=== PATIENT | male | born 1995 | race Two or more races ===

== ENCOUNTER 2016-09-11 10:05 | Emergency (ER) | payer MEDICAID ==
[~2016-09-11] VITALS: Ht 175.3 cm; Wt 68.0 kg
[2016-09-11 10:15] VITALS: BP 139/96
== END 2016-09-11 11:19 | disposition left against medical advice (07) ==
LOC: ER 10:05
DX: N50.812 Left testicular pain (principal); Z53.21 Procedure and treatment not carried out due to patient leaving prior to being seen by health care provider